=== PATIENT | male | born 1980 | race Caucasian/White ===

== ENCOUNTER 2020-08-04 19:03 | Emergency (ER) | payer SELFPAY ==
[2020-08-04] MEDS ORDERED: HYDROcodone/Acetaminophen 10/325 mg Tablet ONE (21:06)
--- NOTE | 2020-08-04 21:07 | RAD ---
LEFT ELBOW FOUR VIEWS: 08/04/20 HISTORY: Patient slipped off of a tractor and injured left elbow. Small triangular shaped foreign body is seen within the soft tissues on the radial side of the proxim al forearm. There is some mild arthritic changes of the elbow joint. No fracture. IMPRESSION: Small radiopaque foreign body. POS: OFF
== END 2020-08-04 23:10 | disposition home or self-care (01) ==
LOC: ERS 19:03
DX: S51.842A Puncture wound with foreign body of left forearm, initial encounter (principal); S50.02XA Contusion of left elbow, initial encounter; W22.8XXA Striking against or struck by other objects, initial encounter; F17.220 Nicotine dependence, chewing tobacco, uncomplicated
CPT/HCPCS: 29105

== ENCOUNTER 2022-03-19 09:52 | Outpatient (CLI) | payer OTHER | END 2022-03-19 09:53 | disposition home or self-care (01) | LOC: SCSMRI 09:52 | PROVIDERS: ATTEND Family Medicine | DX: M54.16 Radiculopathy, lumbar region (principal); M48.07 Spinal stenosis, lumbosacral region; M89.38 Hypertrophy of bone, other site; Z98.890 Other specified postprocedural states | CPT/HCPCS: 72148 ==